=== PATIENT | female | born 1985 | race Caucasian/White ===

== ENCOUNTER 2023-11-22 02:20 | Emergency (ER) | payer OTHER, MEDICAID, SELFPAY ==
[2023-11-22 02:28] VITALS: BP 165/91; PULSE 95; RESP 18; TEMP 36.8; O2SAT 94; BMI 48.6
[2023-11-22 03:04] VITALS: BP 167/99; PULSE 75; RESP 18; O2SAT 98
--- NOTE | 2023-11-22 03:32 | ED_ITS ---
HPI - Skin/Abscess/Foreign Bdy General: Chief complaint: Skin/Abscess/Foreign Body Stated complaint: Pain and Bleeding from Belly Button Time Seen by Provider: 11/22/23 02:29 History of Present Illness: 38-year-old female who has had soreness to her umbilicus for the last couple of days. She noted some bleeding from it this morning. There may have been some purulent drainage yesterday. No fever. No significant belly pain otherwise. No vomiting. Associated symptoms: Deny fever(s), nausea or vomiting Review of Systems Const: Denies: fever(s) Card: Denies: chest pain Resp: Denies: dyspnea GI: Denies: abdominal pain, nausea or vomiting Skin/Breast: Reports: rash and skin tenderness [facility] ED Female Reproductive History: Date of last menstrual period: 11/15/23 Physical Exam Const: COMMON NORMALS: no acute distress GENERAL APPEARANCE: cooperative; not ill appearing and not frail appearing HENMT: COMMON NORMALS: normocephalic, atraumatic and Normal external nose present HEAD & SCALP: normocephalic and atraumatic FACE & SINUS: normal facial exam and face symmetric NOSE: Normal external nose present Eye: COMMON NORMALS: Equal, round and reactive pupils present and EOMs intact bilaterally PUPIL: Yes Equal, round and reactive pupils present Neck/C-Spine: GENERAL: Yes trachea midline Chest: CHEST: Yes Symmetrical chest wall rise Resp: COMMON NORMALS: normal respiratory effort, No retractions, No use of accessory muscles and clear to auscultation bilaterally AUSCULTATION: clear to auscultation bilaterally Cardio: COMMON NORMALS: regular rate and regular rhythm RATE: regular rate RHYTHM: regular rhythm GI: COMMON NORMALS: Normal to inspection, nondistended, normoactive bowel sounds present Extremity: COMMON NORMALS: no pedal edema Neuro: TANESHA COMA SCALE: document GCS findings Tanesha coma scale eye opening: Spontaneous [place] coma scale verbal response: Orientated [place] coma scale motor response: Obey commands Tanesha coma scale total score: 15 SENSORY EXAM: Yes extremities (intact) Psych: COMMON NORMALS: speech normal SPEECH: Yes normal speech Skin: NARRATIVE SKIN EXAM: Bloody drainage from umbilicus. Small area of fluid collection noted that is superficial. No deep fluid collection. Minimal surrounding cellulitis. No streaking. Course Vital Signs: Vital signs: Vital Signs Temperature 98.3 F 11/22/23 02:28 Pulse Rate 90 11/22/23 03:44 Respiratory Rate 18 11/22/23 03:44 Blood Pressure 160/83 11/22/23 03:44 Pulse Oximetry 98 11/22/23 03:44 Oxygen Delivery Me thod Room Air 11/22/23 03:04 MDM - Skin/Abscess/Foreign Bdy Medicial Decision Making Cellulitic bellybutton with some bloody drainage. There is no fluid collection that is drainable currently. She will be allowed discharge on doxycycline. Outpatient follow-up for wound check. To return for worsening symptoms. No radiology studies performed this visit Discharge Plan Discharge Patient Disposition: Home Clinical Impression: Cellulitis Qualifiers: Site of cellulitis of trunk: umbilicus Condition: Stable Prescriptions: New doxycycline hyclate 100 mg tablet 100 mg PO BID 10 Days Qty: 20 0RF Discharge Orders: Discharge ED (Routine); Ordered 11/22/23 Ordered By: Iron Cooley Referrals: Endy Mae MD [Primary Care Provider] - 4-7 days Patient Instructions: Cellulitis (ED), Opioid Safety, Pain Management Activity Restrictions/Additional Instructions: Antibiotics as directed. Return for fever, vomiting liquids or medications, worsening pain despite treatment, spreading redness despite treatment, any other concerning symptoms. See your doctor later this week for a wound check. Coding Level of Care Code ED Cell Inspector for Kenny Perla
[2023-11-22 03:44] VITALS: BP 160/83; PULSE 90; RESP 18; O2SAT 98
== END 2023-11-22 03:45 | disposition home or self-care (01) ==
PROVIDERS: Emergency Provider Emergency Medicine; PCP Family Medicine
DX: L03.316 Cellulitis of umbilicus (principal)
CPT/HCPCS: 99283